=== PATIENT | female | born 1980 | race Two or more races ===

== ENCOUNTER 2017-08-18 01:10 | Emergency (ER) | payer OTHER ==
[~2017-08-18] VITALS: Ht 152.4 cm; Wt 61.2 kg
[2017-08-18 01:20] VITALS: BP 135/68
[2017-08-18] MEDS ORDERED: IBUPROFEN 400 MG TABLET PO ONE (01:30)
[2017-08-18] MEDS ORDERED: IBUPROFEN 400 MG TABLET ONE (01:34)
== END 2017-08-18 02:26 ==
LOC: ER 01:12
DX: S83.8X2A Sprain of other specified parts of left knee, initial encounter (principal); V86.56XA Driver of dirt bike or motor/cross bike injured in nontraffic accident, initial encounter; Y93.89 Activity, other specified; Y92.89 Other specified places as the place of occurrence of the external cause; Y99.8 Other external cause status; F32.9 Major depressive disorder, single episode, unspecified; F41.9 Anxiety disorder, unspecified
CPT/HCPCS: 73564; 99284; A4606; A6402; Z7610

== ENCOUNTER 2019-11-16 20:10 | Emergency (ER) | payer MEDICAID, OTHER ==
[~2019-11-16] VITALS: Ht 152.4 cm; Wt 61.2 kg
--- NOTE | 2019-11-16 20:10 | NUR ---
BIB EMS & [employer] C/O INGESTION OF IGM OF MEHT AND HEROIN PER PT & EMS REPORT PT AAOX4. DENIES SI OR HI. BS-201, PT AWAKE, ALERT, -SOB, NAD NOTED, VSS, PENDING MD ELAM
--- NOTE | 2019-11-16 20:43 | NUR ---
POISON CONTROL CALLED PER DR RUIZ.
[2019-11-16] MEDS ORDERED: ACTIVATED CHARCOAL 25 GM/120 ML TUBE PO ONE (21:00)
[2019-11-16] MEDS ORDERED: ONDANSETRON HCL/PF 4 MG/2 ML VIAL IVP ONE (21:00)
[2019-11-16] MEDS ORDERED: IV NS 0.9% 1,000 ML BAG IV ONE (21:00)
[2019-11-16] MEDS ORDERED: ONDANSETRON HCL/PF 4 MG/2 ML VIAL ONE (21:12)
[2019-11-16 21:20] LABS: BASOPHILS # (AUTO) 0.1 /CMM (0.0-0.2); HEMATOCRIT 38 % (33-45); HEMOGLOBIN 11.8 g/dL (11.5-14.8); LYMPHOCYTES # (AUTO) 2.2 /CMM (0.8-4.8); LYMPHOCYTES % (AUTO) 25.6 % (20.0-44.0); MEAN CORPUSCULAR HGB CONC 32 g/dl (31.0-36.0); MEAN CORPUSCULAR VOLUME 77 fL (82-100); MONOCYTES # (AUTO) 0.5 /CMM (0.1-1.30); MONOCYTES % (AUTO) 6.2 % (2.0-12.0); NEUTROPHILS # (AUTO) 5.8 /CMM (1.8-8.9); NEUTROPHILS % (AUTO) 66.2 % (43.0-81.0); PLATELET COUNT (AUTO) 427 /CMM (150-450); RED BLOOD CELL COUNT(AUTO) 4.84 MIL/uL (4.0-5.2); WHITE BLOOD COUNT (AUTO) 8.7 K/uL (4.3-11.0)
[2019-11-16 21:39] LABS: CALCIUM, SERUM 9.3 mg/dL (8.5-10.1); CARBON DIOXIDE 27 mmol/L (21-32); CHLORIDE 102 mmol/L (98-107); CREATININE 0.9 mg/dL (0.6-1.3); GLUCOSE 120 mg/dL (74-106); POTASSIUM 3.8 mmol/L (3.5-5.1); SODIUM SERUM 137 mmol/L (136-145); UREA NITROGEN, BLOOD 20 mg/dL (7-18)
[2019-11-16 21:45] LABS: ALANINE AMINOTRANSFERASE 50 U/L (12-78); ALCOHOL, BLOOD < 3 mg/dL (0-0); ALKALINE PHOSPHATASE 141 U/L (46-116); ASPARTATE AMINOTRANSFERASE 46 U/L (15-37); BILIRUBIN,DIRECT 0.1 mg/dL (0.0-0.2); BILIRUBIN,TOTAL 0.2 mg/dL (0.2-1.0); TOTAL PROTEIN, SERUM 8.2 g/dL (6.4-8.2)
[2019-11-16 21:47] LABS: ACETAMINOPHEN < 2 ug/ml (10-30); SALICYLATE 1.7 mg/dL (2.8-20.0)
--- NOTE | 2019-11-17 | NUR ---
Patient is resting comfortably in bed with eyes closed. Easily aroused. VSS
--- NOTE | 2019-11-17 01:30 | NUR ---
PT IN BED, SLEEPING AT THIS TIME, -SOB, AROUSABLE, VS RECORDED
[2019-11-17 04:40] LABS: APPEARANCE,URINE Clear (CLEAR); BILIRUBIN,URINE Negative (NEGATIVE); BLOOD, URINE Small Ery/uL (NEGATIVE); COLOR,URINE Yellow (YELLOW); KETONES,URINE Negative (NEGATIVE); LEUKOCYTE ESTERASE ,URINE Negative (NEGATIVE); NITRITE, URINE Negative (NEGATIVE); PROTEIN,URINE Negative (NEGATIVE); UGLUCOSE Negative (NEGATIVE); UROBILINOGEN,URINE 0.2 EU/dL (0.2)
[2019-11-17 05:04] LABS: BACTERIA,URINE Few /HPF (None Seen); SQUAMOUS EPITHELIAL CELL,UR Few /HPF (None Seen)
--- NOTE | 2019-11-17 07:27 | NUR ---
SPOKE TO POISON CONTROL, CANDELARIO , RECOMMENDED 12 HOURS OBSERVATION FROM ADMISSION TO ER. MADE AWARE.
--- NOTE | 2019-11-17 08:00 | NUR ---
PATIENT ALERT AND ORIENTED X4, BREATHING EVEN AND UNLABORED, NO SOB NOTED. NEEDS ATTENDED. VSS. [employer] AT BEDSIDE.
--- NOTE | 2019-11-17 08:26 | NUR ---
PATIENT a/ox4, ambulatory with steady gait. No distress noted. Patient discharged to [facility] in stable condition. Written and verbal after care instructions given. Patient verbalizes understanding of instruction.IV removed. Catheter intact and site benign. Pressure and 4x4 applied to site. No bleeding noted.
[2019-11-17 08:27] VITALS: BP 133/86
== END 2019-11-17 08:27 ==
LOC: ER 20:11
DX: R00.0 Tachycardia, unspecified (principal); F19.10 Other psychoactive substance abuse, uncomplicated; J45.909 Unspecified asthma, uncomplicated; F32.9 Major depressive disorder, single episode, unspecified; F17.200 Nicotine dependence, unspecified, uncomplicated
CPT/HCPCS: 36415; 74018; 80048; 80076; 80305; 80307; 80329; 81001; 84702; 84703; 85025; 87086; 93005; 96374; 99284; G0480; J2405; J7030; 81000-TC

== ENCOUNTER 2021-09-08 13:07 | Emergency (ER) | payer SELFPAY ==
--- NOTE | 2021-09-08 13:11 | NUR ---
called for triage not in the waiting room
--- NOTE | 2021-09-08 13:20 | NUR ---
called for triage not in the waiting room
--- NOTE | 2021-09-08 13:25 | NUR ---
called for triage not in the waiting room
== END 2021-09-08 13:25 | disposition left against medical advice (07) ==
LOC: ER 13:17
DX: Z53.21 Procedure and treatment not carried out due to patient leaving prior to being seen by health care provider (principal); J45.909 Unspecified asthma, uncomplicated; F41.9 Anxiety disorder, unspecified; F31.9 Bipolar disorder, unspecified